=== PATIENT | female | born 1950 | race Asian ===

== ENCOUNTER 2020-03-29 02:41 | Emergency (ER) | payer MEDICARE, BC ==
[~2020-03-29] VITALS: Ht 162.6 cm; Wt 62.1 kg
[2020-03-29 03:08] VITALS: BP 160/91
--- NOTE | 2020-03-29 03:11 | NUR ---
PATIENT CAME TO ER BED 9 C/O HITTING HER HEAD. PATIENT STATES THAT SHE WALKED INTO A VERY CLEAR AND CLEAN GLASS DOOR NOT KNOWING IT WAS THERE AND FELL BACKWARDS ONTO HER HEAD. DENIES LOSING CONSCIOUSNESS. BUMP NOTED ON THE TOP OF HEAD. NO BLEEDING. AAOX4. NO SOB. BREATHING EVENLY AND UNLABORED ON ROOM AIR. CONNECTED TO MONITOR.
--- NOTE | 2020-03-29 03:13 | NUR ---
PATIENT TAKEN TO CT.
--- NOTE | 2020-03-29 04:07 | NUR ---
Patient discharged to home in stable condition. Written and verbal after care instructions given. Patient verbalizes understanding of instruction. ambulatory with a steady gait
== END 2020-03-29 04:07 | disposition home or self-care (01) ==
LOC: ER 02:48
DX: S09.8XXA Other specified injuries of head, initial encounter (principal); I10 Essential (primary) hypertension; W18.09XA Striking against other object with subsequent fall, initial encounter; Y93.01 Activity, walking, marching and hiking; Y92.89 Other specified places as the place of occurrence of the external cause; Y99.8 Other external cause status
CPT/HCPCS: 70450-TC